=== PATIENT | female | born 1955 | race Caucasian/White ===

== ENCOUNTER 2016-08-10 17:57 | Emergency (ER) | payer OTHER ==
--- NOTE | 2016-08-10 18:06 | PDOC ---
Rapid Medical Evaluation Time Seen by Provider: 08/10/16 18:03 Medical Evaluation: Allergies Allergy/AdvReac Type Severity Reaction Status Date / Time codeine [Codeine] Allergy Verified 02/23/13 15:19 metronidazole [From Flagyl] Allergy Verified 02/23/13 15:19 Metronidazole HCl Allergy Verified 02/23/13 15:19 [From Flagyl] 08/10/16 18:04 I have performed a brief in-person evaluation of this patient. The patient presents with chief complaint of numbness headache and blurred vision 1 hr ago Pertinent physical exam findings: neuro intact,no focal deficits noted I have ordered the following stroke protocol The patient will proceed to the ED for further evaluation.
[2016-08-10 18:09] VITALS: BMI 25.7
[2016-08-10 18:21] VITALS: TEMP 98.6
--- NOTE | 2016-08-10 18:32 | PDOC ---
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 Patient reports waking up in the morning feeling in her usual state health. At 4:30, patient was going to work when she noted headache and visual disturbances consistent with her previous migraines. She reports a foggy like diffuse headache. No nausea no vomiting. She had taken a Fioricet with no improvement in symptoms. She also started expressing perioral tingling and numbness. Because the headache and the addis-oral symptoms were not improving, patient came to the ER. Code high was activated in the front. <David Fontanez - Last Filed: 08/10/16 18:43> - General History Source: Patient Exam Limitations: No Limitations <Cristhian Boland - Last Filed: 08/10/16 19:51> - General Chief Complaint: CVA/TIA Stated Complaint: NUMBNESS/EMPLOYEE Time Seen by Provider: 08/10/16 18:03 Past History <David Fontanez - Last Filed: 08/10/16 18:43> - Past Medical History Anemia: No Asthma: Yes Cancer: No Cardiac Disorders: No CVA: No COPD: No CHF: No Dementia: No Diabetes: No GI Disorders: Yes (ABDOMINAL PAIN) Disorders: No HTN: No Hypercholesterolemia: No Liver Disease: No Seizures: No Thyroid Disease: No - Surgical History Abdominal Surgery: Yes (UMBILICAL HERNIA REPAIR) Appendectomy: No Cardiac Surgery: No Cholecystectomy: No Lung Surgery: No Neurologic Surgery: No Orthopedic Surgery: Yes (ARTHROSCOPY RIGHT KNEE) - Psycho/Social/Smoking Cessation Hx Anxiety: No Suicidal Ideation: No Smoking Status: Yes Smoking History: Former smoker Have you smoked in the past 12 months: No Number of Cigarettes Smoked Daily: 0 If you are a former smoker, when did you quit?: 10 years ago Information on smoking cessation initiated: No Hx Alcohol Use: No Drug/Substance Use Hx: No Substance Use Type: None Hx Substance Use Treatment: No <Cristhian Boland - Last Filed: 08/10/16 19:51> - Past Medical History Allergies/Adverse Reactions: Allergies Allergy/AdvReac Type Severity Reaction Status Date / Time codeine [Codeine] Allergy Verified 08/10/16 18:21 metronidazole [From Flagyl] Allergy Verified 08/10/16 18:21 Metronidazole HCl Allergy Verified 08/10/16 18:21 [From Flagyl] Home Medications: Ambulatory Orders NK [No Known Home Medication] 08/10/16 Review of Systems - Review of Systems Able to Perform ROS?: Yes Comments:: 08/10/16 18:43 GENERAL/CONSTITUTIONAL: No fever or chills. No weakness. HEAD, EYES, EARS, NOSE AND THROAT: (+) Oral numbness, No change in vision. No ear pain or discharge. No sore throat. CARDIOVASCULAR: No chest pain or shortness of breath. RESPIRATORY: No cough, wheezing, or hemoptysis. GASTROINTESTINAL: No nausea, vomiting, diarrhea or constipation. GENITOURINARY: No dysuria, frequency, or change in urination. MUSCULOSKELETAL: No joint or muscle swelling or pain. No neck or back pain. SKIN: No rash NEUROLOGIC: (+) headache. No vertigo, loss of consciousness, or change in strength/sensation. ENDOCRINE: No increased thirst. No abnormal weight change. HEMATOLOGIC/LYMPHATIC: No anemia, easy bleeding, or history of blood clots. ALLERGIC/IMMUNOLOGIC: No hives or skin allergy. <David Fontanez - Last Filed: 08/10/16 18:43> *Physical Exam - Vital Signs Last Vital Signs Temp Pulse Resp BP Pulse Ox 98.6 F 78 20 145/88 100 08/10/16 18:20 08/10/16 18:20 08/10/16 18:20 08/10/16 18:20 08/10/16 18:10 - Physical Exam Comments: 08/10/16 18:43 GENERAL: Awake, alert, and fully oriented, in no acute distress HEAD: No signs of trauma EYES: PERRLA, EOMI, sclera anicteric, conjunctiva clear ENT: Auricles normal inspection, hearing grossly normal, nares patent, oropharynx clear without exudates. Moist mucosa NECK: Normal ROM, supple, no lymphadenopathy, JVD, or masses LUNGS: Breath sounds equal, clear to auscultation bilaterally. No wheezes, and no crackles HEART: Regular rate and rhythm, normal S1 and S2, no murmurs, rubs or gallops ABDOMEN: Soft, nontender, normoactive bowel sounds. No guarding, no rebound. No masses EXTREMITIES: Normal range of motion, no edema. No clubbing or cyanosis. No cords, erythema, or tenderness SKIN: Warm, Dry, normal turgor, no rashes or lesions noted. <JdjiDavid - Last Filed: 08/10/16 18:43> - Vital Signs Last Vital Signs Temp Pulse Resp BP Pulse Ox 98.6 F 78 20 145/88 97 08/10/16 18:20 08/10/16 18:20 08/10/16 18:20 08/10/16 18:20 08/10/16 18:05 - Physical Exam Comments: 08/10/16 18:31 NEURO: CN II-XII intact (some mild paresthesias appreciated perioral). 5/5 strength upper and lower extremities Sensation intact throughout. No pronator drift Finger to nose intact. Rapid alternating intact. Speech normal. <Cristhian Boland - Last Filed: 08/10/16 19:51> NIH Stroke Scale - Last Known Well Date/Time & Onset Date Last Known Well: 08/10/16 Time Last Known Well: 16:30 - Initial Evaluation Level of consciousness: Alert Ask patient the month and their age: Answers both correctly Ask patient to open & close eyes; make fist and let go: Obeys both correctly Best gaze (horizontal eye movement): Normal Visual field testing: No visual field loss Facial paresis (Show teeth/raise eyebrows/close eyes tight): Normal symmetrical movement Motor Function: Left Arm: Normal Motor Function: Right Arm: Normal (extends arm 90 (or 45) degrees for 10 seconds without drift Motor Function: Left Leg: Normal (extends leg 30 degrees for 5 seconds without drift) Motor Function: Right Leg: Normal (extends leg 30 degrees for 5 seconds without drift) Limb Ataxia: No ataxia Sensory(Use pinprick test arms,legs,trunk,face/side to side): Normal Best language (Describe picture, name items, read sentences): No Aphasia Dysarthria (read several words): Normal articulation Extinction and Inattention: No abnormality - Total Score NIH Stroke Scale Score: 0 <Cristhian Boland - Last Filed: 08/10/16 19:51> tPA Exclusion Checklist 0-3hr - Time Elapsed Date last known well: 08/10/16 Time last known well: 16:30 Elaspsed time: Day(s) and 3 Hour(s) and 21 Minutes - Thrombolytic Therapy Candidate Is the patient eligible for Thrombolytic Therapy?: No - Exclusion Criteria 0-3hr SBP greater than 185 or DBP greater than 110mmHg despite tx: No Recent IC/spinal surgery,head trauma or stroke w/in last 3mo: No Hx of previous IC hemorrhage, IC neoplasm, AVM or aneurysm: No Active internal bleeding: No Symptoms suggest subarachnoid hemorrhage: No Arterial puncture at noncompressible site in previous 7 days: No Blood glucose concentration less than 50mg/dL (2.7mmol/L): No - Relative Exclusion Criteria 0-3h Life expectancy <1yr/severe co-morbid illness/[employer] on admit: No : No Rapid improvement: Yes Stroke severity too mild: Yes Recent acute RI (w/in previous 3 months): No Seizure at onset with postictal residual neuro impairments: No Major surgery or serious trauma w/in previous 14 days: No Recent GI or hemorrhage (w/in previous 21 days): No - Ineligibility reason(s) Reasons No tPA given: See reason(s) noted above <Cristhian Boland - Last Filed: 08/10/16 19:51> Heart Score/ECG Review #1 ECG reviewed & interpreted by me at: 18:40 08/10/16 19:14 NSR 65 with 1st degree AV block, low voltage QRS, poor R wave progression, TWI III, no std/crescencio, QTC 386 msec <Cristhian Boland - Last Filed: 08/10/16 19:51> Critical Care Time/[facility] Note - Medical Decision Making Note: 08/10/16 18:44 Documentation prepared by David Fontanez, acting as mobile paramedical examiner for Cristhian Boland MD. <David Fontanez - Last Filed: 08/10/16 18:43> - Medical Decision Making Note: 08/10/16 18:28 A portion of this note was documented by scribe services under my direction. I have reviewed the details of the note, within reason, and agree with the documentation with the following case summary and management plan written by me. Patient treated in the ED. Nursing notes are reviewed and incorporated into the medical decision-making. Vital signs reviewed. Peripheral IV access obtained by the nurse, laboratory studies are drawn and sent, reviewed and interpreted by myself. 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 Patient reports waking up in the morning feeling in her usual state health. At 4:30, patient was going to work when she noted headache and visual disturbances consistent with her previous migraines. She reports a foggy like diffuse headache. No nausea no vomiting. She had taken a Fioricet with no improvement in symptoms. She also started expressing perioral tingling and numbness. Because the headache and the addis-oral symptoms were not improving, patient came to the ER. Code high was activated in the front. I suspect that this is likely complicated migraine and not a stroke. Patient reports that her headache is improving. We'll follow up the head CT and labs. If workup is negative and the symptoms are improved, I will discharge is complicated migraine. 08/10/16 19:[address] reviewed. No acute findings. Pt reports feeling significantly better. Will d/c home. Labs reviewed. No acute findings. Again, I suspect complicated migraines. No concerns for strokes. I discussed the physical exam findings, ancillary test results and final diagnoses with the patient. I answered all of the patient's questions. The patient was satisfied with the care received and felt comfortable with the discharge plan and treatment plan. The patient will call their primary care physician within 24 hours to arrange follow-up and will return to the Emergency Department with any new, persistant or worsening symptoms. <Cristhian Boland - Last Filed: 08/10/16 19:51> Discharge Disposition <David Fontanez - Last Filed: 08/10/16 18:43> - Discharge Dispostion Last Admission D/C Date: 11/01/05 Admit: No <Cristhian Boland - Last Filed: 08/10/16 19:51> - Diagnosis Migraine Qualifiers: Migraine type: with aura Status migrainosus presence: without status migrainosus Intractability: not intractable Qualified Code(s): G43.109 - Migraine with aura, not intractable, without status migrainosus - Discharge Dispostion Disposition: HOME Condition at time of disposition: Improved - Patient Instructions Printed Discharge Instructions: DI for Migraine Additional Instructions: Your head CT is negative. Please follow up with your neurologist.
[2016-08-10 18:34] LABS: MCHC 33.6 g/dl (32.0-36.0); MEAN CELL VOLUME 86.3 fl (80-96); MEAN PLT VOLUME 8.2 fl (7.5-11.1); PLATELET COUNT 248 K/MM3 (134-434); RDW 13.2 % (11.6-15.6)
[2016-08-10 18:52] LABS: INR 1.04 (0.82-1.09); PROTHROMBIN TIME (PATIENT) 11.4 SEC (9.98-11.88)
[2016-08-10 18:54] LABS: ACTIVATED PTT 33.4 SECONDS (26.9-34.4)
[2016-08-10 19:08] LABS: ALBUMIN 3.8 g/dl (3.4-5.0); ANION GAP 10 (8-16); BILIRUBIN,TOTAL 0.2 mg/dL (0.2-1.0); CALCIUM 8.7 mg/dL (8.5-10.1); CO2 24 mmol/L (21-32); CREATININE 0.6 mg/dL (0.55-1.02); GLUCOSE,RANDOM 109 mg/dL (74-106); SGOT/AST 16 U/L (15-37); SGPT/ALT 23 U/L (12-78)
[2016-08-10 19:10] LABS: ALK PHOS 65 U/L (45-117); TROPONIN I < 0.02 ng/ml (0.00-0.05)
[2016-08-10 19:29] VITALS: BP 140/79; PULSE 52
--- NOTE | 2016-08-13 22:12 | EKG ---
Test Reason : Blood Pressure : / mmHG Vent. Rate : 065 BPM Atrial Rate : 065 BPM P-R Int : 212 ms QRS Dur : 070 ms QT Int : 372 ms P-R-T Axes : 048 068 058 degrees QTc Int : 386 ms SINUS RHYTHM WITH 1ST DEGREE A-V BLOCK LOW VOLTAGE QRS CANNOT RULE OUT ANTEROSEPTAL INFARCT (CITED ON OR BEFORE 07-MAR-2011) ABNORMAL ECG WHEN COMPARED WITH ECG OF 07-MAR-2011 12:56, NO SIGNIFICANT CHANGE WAS FOUND Confirmed by ISABEL MICHAEL MD ([id number]) on 08/13/2016 10:11:52 PM Referred By: Confirmed By:ISABEL MICHAEL MD
== END 2016-08-10 19:58 | disposition home or self-care (01) ==
LOC: JER 17:57
DX: G43.109 Migraine with aura, not intractable, without status migrainosus (principal); Z87.891 Personal history of nicotine dependence; J45.909 Unspecified asthma, uncomplicated
CPT/HCPCS: 36415; 70450-TC; 80053; 82550; 84484; 85027; 85610; 85730; 93005; 93010; 99285-25